=== PATIENT | female | born 1960 | race Caucasian/White ===

== ENCOUNTER 2020-09-28 06:16 | Day surgery (SDC) | payer BC ==
[~2020-09-28] VITALS: Ht 154.9 cm; Wt 102.5 kg
[2020-09-28 06:33] VITALS: BP 140/64
[2020-09-28] MEDS ORDERED: INSU100V6 SQ (06:43)
[2020-09-28] MEDS ORDERED: PIOG45TA62 PO (06:43)
[2020-09-28] MEDS ORDERED: DULO30CA2 PO (06:43)
[2020-09-28] MEDS ORDERED: OXYB5TAB10 PO (06:43)
[2020-09-28] MEDS ORDERED: INSU100V13 SQ (06:43)
[2020-09-28] MEDS ORDERED: IV RINGERS,LACTATED 1000ML 1,000 ML IV SCH (06:45)
[2020-09-28] MEDS ORDERED: DEXAMETHASONE SOD PHOS 4 MG/ML VIAL ONE (07:22)
[2020-09-28] MEDS ORDERED: ONDANSETRON PF 4 MG/2 ML VIAL. ONE (07:22)
[2020-09-28] MEDS ORDERED: fentaNYL PF VIAL 100 MCG/2 ML VIAL ONE (07:22)
[2020-09-28] MEDS ORDERED: PROPOFOL 10 MG/ML (20ML) VIAL. IV ONE (07:22)
[2020-09-28] MEDS ORDERED: LIDOCAINE 2% PF 5 ML VIAL. ONE (07:22)
[2020-09-28] MEDS ORDERED: MIDAZOLAM HCL/PF 2 MG/2 ML VIAL. ONE (07:23)
--- NOTE | 2020-09-28 07:54 | PDOC1 ---
OYSTER SORTER H&P Date of Admission: Date of Admission: History of Present Illness: 60y presents for scheduled surgery. The pt presented to the office on 08/14/20 with PMB. The pt had a pap and an EMB. Due to a mass in the cervix the EMB was unable to reach the fundus. The pap returned neg/neg. The EMB returned weakly proliferative endometrium with fibrin clot and mild chronic endocervicitis. Explained that these results are reassuring, but since we did not reach the fundus we can not truly rule out hyperplasia or CA. Discussion was held with the pt to obtain sample in the OR. PMH: Diabetes mellitus, Hypertension. PSH: section x1 , tonsillectomy , D and C x 2 , BTL Meds: Pioglitazone, DULoxetine, Humalog, Levemir All: NKDA Regeneration Operator: LMP 2014 12yo / regular / 54yo OBHx: TC/S x 1, TVBAC x 3. SH: no tob, no EtOH FH: noncontributory Allergies: Coded Allergies: No Known Drug Allergies (Unverified , 09/25/20) Physical Exam: Vital Signs: Vital Signs Date Time Temp Pulse Resp B/P (MAP) Pulse Ox O2 Delivery O2 Flow Rate FiO2 09/28/20 06:38 97.7 77 22 140/64 97 Room Air 97.7 PE: GENERAL: No apparent distress. Alert and oriented. HEENT: Head normocephalic, atraumatic. NECK: Supple LUNGS: Clear to auscultation. HEART: RRR, S1, S2 present, pulses intact ABDOMEN: Soft, positive bowel sounds. EXTREMITIES: No cyanosis or edema. NEUROLOGIC: Normal speech, normal tone PSYCHIATRIC: Normal affect, normal mood. SKIN: No ulceration. Labs: Laboratory Tests Test 09/28/20 06:35 Glucose (Fingerstick) 76 mg/dL (70-99) Assessment & Plan: A/P 60y with PMB 1.) PMB - unable to pass EMB pipette to uterine fundus. Schedule for H/S, D&C, Myosure. 2.) Cervical mass vs lower uterine segment - what is seen on exam may be what is described on her most recent u/s. Will attempt to bypass and remove it with the above surgery 3.) Urinary incontinence - described mostly as urge. On Oxybutynin 4.) Menopause - still with mild symptoms. Never ERT/HRT 5.) Prev C/S x 1 6.) Regeneration Operator screening - pap performed 7.) HTN, DM - per PCP 8.) Contraception BTL KAN FLORES MD Sep 28, 2020 07:54
[2020-09-28 08:03] LABS: BASO % 1 % (0-3); EOS % 1 % (0-3); HEMOGLOBIN 11.4 g/dL (12.0-15.5); LYMPH # 0.8 x10^3/uL (1.0-4.8); LYMPH % 19 % (24-48); MEAN CORPUSCULAR HEMOGLOBIN 29 pg (25-35); MEAN CORPUSCULAR HGB CONC 33 g/dL (31-37); MEAN CORPUSCULAR VOLUME 85 fL (79-100); MONO # 0.8 x10^3/uL (0.0-1.1); MONO % 19 % (0-9); NEUT # 2.4 x10^3/uL (1.8-7.7); NEUT % 59 % (31-73); PLATELET COUNT 180 x10^3/uL (140-400); RED BLOOD COUNT 3.99 x10^6/uL (3.50-5.40); RED CELL DISTRIBUTION WIDTH 14.3 % (11.5-14.5); WHITE BLOOD COUNT 4.1 x10^3/uL (4.0-11.0)
[2020-09-28] MEDS ORDERED: PHENYLEPHRINE in 0.9% NACL PF 1 MG/10 ML SYRINGE. IV ONE (08:13)
[2020-09-28] MEDS ORDERED: SEVOFLURANE 31 TO 60 MINUTES. IH ONE (08:13)
[2020-09-28] MEDS ORDERED: KETOROLAC 30 MG/ML VIAL. ONE (08:34)
[2020-09-28] MEDS ORDERED: IBUP-1060 PO (09:07)
[2020-09-28] MEDS ORDERED: OXYC1TAB15 PO (09:07)
[2020-09-28] MEDS ORDERED: fentaNYL PF VIAL 100 MCG/2 ML VIAL IV PRN ×2 (09:30)
[2020-09-28] MEDS ORDERED: fentaNYL PF VIAL 100 MCG/2 ML VIAL IVP PRN ×2 (09:30)
[2020-09-28] MEDS ORDERED: PROCHLORPERAZINE 10 MG/2 ML VIAL. IVP PRN (09:30)
[2020-09-28] MEDS ORDERED: MORPHINE SULFATE 2 MG/ML INJ. IVP PRN (09:30)
[2020-09-28] MEDS ORDERED: MIDAZOLAM HCL/PF 2 MG/2 ML VIAL. IV PRN (09:30)
[2020-09-28] MEDS ORDERED: HYDROmorphone 2 MG/ML VIAL IVP PRN (09:30)
[2020-09-28 09:49] VITALS: BP 137/64
[2020-09-28] MEDS ORDERED: IBUPROFEN 400 MG TABLET. PO ONE (10:00)
[2020-09-28] MEDS ORDERED: oxyCODONE/APAP 5/325 1 TAB TABLET PO ONE (10:00)
[2020-09-28 10:25] LABS: % BANDS 2 % (0-9); % LYMPHS 19 % (24-48); % MONOS 10 % (0-10); % SEGS 69 % (35-66); PLT ESTIMATE ADEQUATE (ADEQUATE)
--- NOTE | 2020-09-28 11:58 | PDOC4 ---
OPERATIVE NOTE: PreOp Dx: 1.) PMB, 2.) Cervical mass vs lower uterine segment, 3.) Urinary incontinence, 4.) HTN, 5.) DM PostOp Dx: same Procedure: H/S, Myosure, myomectomy Surgeon: Gui Flores Anesthesia: LMA EBL: 200 cc Fluids: 700 cc UOP: 150 cc Complication: none Findings: benign appearing endometrium, cervical fibroid arising from the left lateral edge Path: endometrial sampling and fibroid KAN FLORES MD Sep 28, 2020 11:58
--- NOTE | 2020-09-28 14:35 | OP ---
DATE OF SURGERY: 09/28/2020 PREOPERATIVE DIAGNOSES: 1. Postmenopausal bleeding. 2. Cervical mass in lower uterine segment. 3. Uterine incontinence. 4. Hypertension. 5. Diabetes. POSTOPERATIVE DIAGNOSES: 1. Postmenopausal bleeding. 2. Cervical mass in lower uterine segment. 3. Uterine incontinence. 4. Hypertension. 5. Diabetes. PROCEDURE: Hysteroscopy, MyoSure and myomectomy. SURGEON: Dr. Gui Maria. ANESTHESIA: LMA. ESTIMATED BLOOD LOSS: 200 mL FLUIDS: 700 mL. URINE OUTPUT: 150 mL. COMPLICATIONS: None. FINDINGS: Benign appearing endometrium, cervical fibroid arising from the left lateral edge of the cervix, maybe 0.5 cm from external os. PATHOLOGY: Endometrial sampling and fibroid. DESCRIPTION OF PROCEDURE: The patient was taken to the operating room where LMA was placed without difficulty. The patient was prepped and draped in a normal sterile fashion. A speculum was placed in the patient's vagina, visualized the cervix. A single tooth tenaculum was then placed on the anterior lip of the cervix. The cervical mass could be seen in the cervical os. A uterine sound was used to find the pathway around the cervical mass. It was found to be attached at the left lateral edge, so the sound was able to reach the fundus by going lateral to the fibroid. The sound was then removed and the hysteroscope was then placed. Entry into endometrial cavity revealed what appeared to be atrophic appearing endometrium. A sample of the endometrium was collected with the MyoSure. At that point, the MyoSure was withdrawn into the cervical canal used to shave off the fibroid in the cervical canal. It was felt that the fibroid was too large to be removed with this method. The MyoSure was removed and the fibroid was grasped with the another tenaculum and pulled it through the cervical os. Once the fibroid was exteriorized, Henry scissors were used to cut the base of the fibroid. Once the fibroid was removed, this was sent to pathology. The site of removal of the fibroid had minimal bleeding, so no additional shaving was required of the MyoSure. Once that was performed, the single tooth tenaculum on the anterior lip of the cervix was then removed. Good hemostasis was noted. At that point, the patient was taken to recovery room in stable condition. MARCIANO/EDWIN DR: Marcus TID: [id number] MTDD
--- NOTE | 2020-10-02 09:11 | PATHOLOGY ---
[facility] Accession Number: [id number] . 01 Material submitted: . PART A: endometrium - ENDOMETRIAL CURETTINGS AND FIBROID. Modifiers: FIBROID PART B: endometrium - FIBROID. Modifiers: FIBROID . 01 Clinical history: . HYSTEROSCOPY D+C POST MENOPAUSAL BLEEDING . 02 Diagnosis: A. Endometrial curettings and fibroid: - Few segments of atrophic and weakly proliferative endometrium, and multiple segments of smooth muscle consistent with leiomyoma. . B. Endomyometrial tissue, designated "fibroid": - Submucosal leiomyoma with focal overlying atrophic endometrium. (JPM:pit:db; 10/01/2020) [facility] 10/01/2020 1728 Local . 02 Comment: There is no atypia or evidence of malignancy. (JPM:pit; 10/01/2020) . 02 Electronically signed: . Blue Robison MD, Pathologist NPI- [id number] . 01 Gross description: . A. Received in formalin labeled "Anita Sylvester, endometrial curettings and fibroid" is a 2.6 x 1.2 x 0.2 cm aggregate of mehta-white rubbery soft tissue fragments. The specimen is submitted entirely in A1. . B. Received in formalin labeled "Higinio, Anita, fibroid" is a mehta-white rubbery soft tissue mass weighing 6 g and measuring 2.7 x 2.3 x 2.0 cm. Upon sectioning, the cut surface is mehta-white and whorled. Sifter And Miller sections are submitted in cassette B1. ([facility] [place]; 09/29/2020) [facility] 09/29/2020 1112 Local . 02 Pathologist provided ICD-10: N85.8, D25.9 . 02 CPT . 716375, [id number] Specimen Comment: A courtesy copy of this report has been sent to [phone], [phone] Specimen Comment: [id number] Specimen Comment: Report sent to / DR SOLANO Specimen Comment: A duplicate report has been generated due to demographic updates. Performed at: 01 [facility] [address], [place] [id number] MD Cecil Dias MD Phone: [phone] Performed at: 02 [facility] [address] [place], [place] [id number] MD Blue Robison MD Phone: [phone]
== END 2020-09-28 10:30 | disposition home or self-care (01) ==
LOC: SURG 06:16
PROVIDERS: ATTEND Obstetrics & Gynecology
DX: N95.0 Postmenopausal bleeding (principal); R39.81 Functional urinary incontinence; D25.9 Leiomyoma of uterus, unspecified; N85.8 Other specified noninflammatory disorders of uterus; I10 Essential (primary) hypertension; E11.9 Type 2 diabetes mellitus without complications; Z98.51 Tubal ligation status; Z98.890 Other specified postprocedural states; Z79.84 Long term (current) use of oral hypoglycemic drugs; Z79.899 Other long term (current) drug therapy; Z87.891 Personal history of nicotine dependence
CPT/HCPCS: 36415; 58561; 82962; 85007; 85025; 86850; 86900; 86901; A4930; J1100; J1885; J2250; J2370; J2405; J2704; J3010; A4351